=== PATIENT | female | born 1990 | race Caucasian/White ===

== ENCOUNTER 2024-09-20 14:06 | Emergency (ER) | payer OTHER ==
[~2024-09-20] VITALS: Ht 157.5 cm; Wt 74.8 kg
[2024-09-20 15:48] LABS: *BILIRUBIN,URIN NEGATIVE (NEGATIVE); *BLOOD, URINE 3+ (NEGATIVE); *CLARITY,URINE CLOUDY (CLEAR); *COLOR,URINE YELLOW (YELLOW); *KETONES,URINE NEGATIVE (NEGATIVE); *PROTEIN,URINE 3+ (NEGATIVE); LEUKOCYTE ESTERASE ,URINE 3+ (NEGATIVE); NITRITE, URINE POSITIVE (NEGATIVE); PH,URINE 7.5 (5.0-8.0); UGLUCOSE NEGATIVE (NEGATIVE)
[2024-09-20 15:50] LABS: *URINE HCG, QUAL NEGATIVE (NEGATIVE); BACTERIA,URINE MANY /HPF (NONE SEEN); RBC,URINE 80-100 /HPF (0-3); SQUAMOUS EPITHELIAL CELL,UR MODERATE /HPF (NONE SEEN); URINE AMORPHOUS URATE MANY /HPF; WBC,URINE 80-100 /HPF (0-3)
[2024-09-20] MEDS ORDERED: IBUP-1955 PO (16:30)
[2024-09-20] MEDS ORDERED: CEPH500T PO (16:31)
[2024-09-20] MEDS ORDERED: HYDR-3972 PO (16:31)
[2024-09-20] MEDS ORDERED: LIDOCAINE HCL 1% 20 ML VIAL ONE (16:37)
[2024-09-20] MEDS ORDERED: CEFTRIAXONE 1 G VIAL ONE (16:37)
[2024-09-20] MEDS ORDERED: OXYCODONE/APAP 5-325 MG TABLET ONE (16:37)
[2024-09-20] MEDS ORDERED: IBUPROFEN 600 MG TABLET ONE (16:38)
[2024-09-20] MEDS: IBUPROFEN 600 MG TABLET PO ONE (16:44)
[2024-09-20] MEDS: OXYCODONE/APAP 5-325 MG TABLET PO ONE (16:44)
[2024-09-20] MEDS: CEFTRIAXONE 1 G VIAL IM ONE (16:44)
[2024-09-20 18:28] VITALS: BP 131/77; O2SAT 100
== END 2024-09-20 17:00 | disposition home or self-care (01) ==
LOC: ER 14:06
DX: N39.0 Urinary tract infection, site not specified (principal); M54.50 Low back pain, unspecified; R31.9 Hematuria, unspecified
CPT/HCPCS: 99283; 81001; 84703; 96372; J0696; J3490; A4606; A4663